=== PATIENT | male | born 1975 | race Hispanic/Latino ===

== ENCOUNTER 2016-09-19 21:52 | Emergency (ER) | payer SELFPAY ==
--- NOTE | 2016-09-20 01:30 | Emergency Department Report ---
- General Chief complaint: Skin/Abscess/Foreign Body Stated complaint: ABSCESS/RT SIDE HIP Time Seen by Provider: 09/20/16 00:41 Source: patient Mode of arrival: Ambulatory Limitations: No Limitations - History of Present Illness Initial comments: Patient here reports that he has an abscess to his right buttocks this been going on for a 4 days. He said he's had similar incidents in the past. Report pain is 8 out of 10 and throbbing pain. No [id number] medication taken. Denies any fever or chills. Denies any nausea or vomiting. Reports his tetanus shot is up-to-date. Medical history of Graves' disease. Denies any allergies. MD complaint: abscess/boil Onset/Timin -: days(s) Tetanus Up to Date: yes Location: buttocks Severity: severe Severity scale (0 -10): 8 Quality: other (throbbing ) Consistency: constant Improves with: rest Worsens with: palpation, movement Context: other (recurrent abscess) Associated symptoms: denies other symptoms Treatments Prior to Arrival: none - Related Data Previous Rx's Medication Instructions Recorded Last Taken Type Ibuprofen [Motrin] 600 mg PO Q8H PRN #15 tablet 09/20/16 Unknown Rx Sulfamethoxazole/Trimethoprim 1 each PO BID #20 tablet 09/20/16 Unknown Rx [Bactrim DS TAB] Allergies Allergy/AdvReac Type Severity Reaction Status Date / Time No Known Allergies Allergy Unverified 09/19/16 23:21 Abscess Boil HPI - HPI Chief Complaint: Skin/Abscess/Foreign Body Stated Complaint: ABSCESS/RT SIDE HIP Time Seen by Provider: 09/20/16 00:41 Home Medications: Previous Rx's Medication Instructions Recorded Last Taken Type Ibuprofen [Motrin] 600 mg PO Q8H PRN #15 tablet 09/20/16 Unknown Rx Sulfamethoxazole/Trimethoprim 1 each PO BID #20 tablet 09/20/16 Unknown Rx [Bactrim DS TAB] Allergies/Adverse Reactions: Allergies Allergy/AdvReac Type Severity Reaction Status Date / Time No Known Allergies Allergy Unverified 09/19/16 23:21 ED Review of Systems ROS: Stated complaint: ABSCESS/RT SIDE HIP Other details as noted in HPI Comment: All other systems reviewed and negative Constitutional: denies: chills, fever Respiratory: no symptoms reported Cardiovascular: denies: chest pain, palpitations, edema, syncope Gastrointestinal: denies: abdominal pain, nausea, vomiting Musculoskeletal: denies: as per HPI, back pain, joint swelling, arthralgia, myalgia Skin: other (abscess to right buttocks) Neurological: denies: headache, weakness, numbness, paresthesias, confusion, abnormal gait, vertigo ED Past Medical Hx - Past Medical History Previous Medical History?: Yes Additional medical history: graves disease. Abscess - Surgical History Past Surgical History?: No - Family History Family history: no significant - Social History Smoking Status: Current Some Day Smoker Substance Use Type: Alcohol - Medications Home Medications: Home Medications Medication Instructions Recorded Confirmed Last Taken Type Ibuprofen [Motrin] 600 mg PO Q8H PRN #15 tablet 09/20/16 Unknown Rx Sulfamethoxazole/Trimethoprim 1 each PO BID #20 tablet 09/20/16 Unknown Rx [Bactrim DS TAB] ED Physical Exam - General Limitations: No Limitations General appearance: alert, in no apparent distress - Head Head exam: Present: atraumatic, normocephalic, normal inspection - Eye Eye exam: Present: normal appearance, PERRL, EOMI Pupils: Present: normal accommodation - ENT ENT exam: Present: normal exam, normal orophraynx, mucous membranes moist - Neck Neck exam: Present: normal inspection, full ROM. Absent: tenderness, meningismus, lymphadenopathy - Respiratory Respiratory exam: Present: normal lung sounds bilaterally. Absent: respiratory distress, chest wall tenderness - Cardiovascular Cardiovascular Exam: Present: regular rate, normal rhythm, normal heart sounds - GI/Abdominal GI/Abdominal exam: Present: soft, normal bowel sounds. Absent: distended, tenderness, guarding, rebound, rigid - Extremities Exam Extremities exam: Present: normal inspection, full ROM, normal capillary refill. Absent: tenderness, pedal edema, joint swelling, calf tenderness - Back Exam Back exam: Present: normal inspection, full ROM. Absent: tenderness, CVA tenderness (R), CVA tenderness (L), muscle spasm, paraspinal tenderness, vertebral tenderness, rash noted - Neurological Exam Neurological exam: Present: alert, oriented X3, normal gait, reflexes normal. Absent: motor sensory deficit - Psychiatric Psychiatric exam: Present: normal affect, normal mood - Skin Skin exam: Present: warm, dry, erythema, other (abscess) - Expanded Skin Exam Expanded Type of lesion: Present: abscess Distribution of rash: other (right buttocks) Description of rash: Present: size (2 x 2 centimeter), tenderness, erythematous , swelling, crusting, fluctuant (partial fluctuant), indurated ED Course Vital Signs 09/19/16 23:19 Temperature 97.4 F L Pulse Rate 87 Respiratory 16 Rate Blood Pressure 124/82 O2 Sat by Pulse 100 Oximetry - Reevaluation(s) Reevaluation #1: 09/20/16 02:03 See procedure note for incision and drainage. - I & D Right Buttocks Type of Procedure: Complex Site: right buttocks 2 x 2 cm abscess Blade Size: 11 I & D Procedure: betadine prep, sterile drapes applied, sterile dressing applied , gauze wick placed Progress: Procedure: Patient with abscess to right buttocks. Erythema with crusting to Center. Indurated with fluctuance to Center. Area cleansed with iodine. 5 cc of lidocaine injected to side. 11 blade used to make 0.25 cm incision. Small amount of pus expressed from site. Surrounded erythema with indurated area. Area packed with iodoform and sterile gauze dressing placed the site. Patient informed to return in 4 days to have packing removed. Discussed with him that he will need to place warm compresses to the area 3-4 times a day and not to remove pack in. Tetanus vaccine is less than 5 years per patient ED Medical Decision Making - Medical Decision Making ED course: Patient presented to emergency room with abscess to right buttock that has been ongoing for 4 days. See procedure note for incision and drainage. Tetanus vaccine is less than 5 years per patient. Patient discharged home in stable condition with prescription for Bactrim DS and Motrin. Critical care attestation.: If time is entered above; I have spent that time in minutes in the direct care of this critically ill patient, excluding procedure time. ED Disposition Clinical Impression: Cellulitis and abscess of buttock, Encounter for incision and drainage procedure Disposition: - TO HOME OR SELFCARE Is pt being admited?: No Does the pt Need Aspirin: No Condition: Stable Instructions: Abscess Incision and Drainage (ED), Cellulitis (ED) Additional Instructions: Please return to the emergency room in 4 days to have packing removed. Apply warm compresses to affected area 3-4 times a day. do not remove pack in. Keep affected area clean and dry Take antibiotic as prescribed Prescriptions: Ibuprofen [Motrin] 600 mg PO Q8H PRN #15 tablet PRN Reason: Pain Sulfamethoxazole/Trimethoprim [Bactrim DS TAB] 1 each PO BID #20 tablet Referrals: [facility] [Outside] - 3-5 Days return to, emergency room [Other] - 09/24/16 Forms: Work/School Release Form(ED)
[2016-09-20 02:26] VITALS: BP 109/67
== END 2016-09-20 02:26 | disposition home or self-care (01) ==
LOC: ED 21:52
DX: L02.31 Cutaneous abscess of buttock (principal); E05.00 Thyrotoxicosis with diffuse goiter without thyrotoxic crisis or storm; Z72.0 Tobacco use